=== PATIENT | female | born 1975 | race Caucasian/White ===

== ENCOUNTER 2020-06-15 08:01 | Emergency (ER) | payer OTHER ==
[~2020-06-15 08:01] MED LIST: COLACE100 MG PO; COLESTIPOL HCL1 GM PO; FAMOTIDINE20 MG PO; IBU800 MG PO; IBUPROFEN600 MG PO; NORCO 5-325 TA1 EACH PO; PREDNISOLONE ACE5 ML OP; ZYRTEC10 M3 PO
[2020-06-15] MEDS ORDERED: PREDNISONE50 MG PO (08:39)
[2020-08-06] MEDS ORDERED: FAMOTIDINE20 MG PO (07:40)
[2020-08-06] MEDS ORDERED: NAPROXEN500 MG PO (07:41)
[2020-08-06] MEDS ORDERED: COLESTIPOL HCL1 GM PO (07:41)
[2020-08-06] MEDS ORDERED: XYZAL5 MG PO (07:42)
[2020-08-06] MEDS ORDERED: PROTONIX40 MG PO (08:50)
== END 2020-06-15 08:50 | disposition home or self-care (01) ==
LOC: ER1 08:01
DX: L25.9 Unspecified contact dermatitis, unspecified cause (principal); Z90.49 Acquired absence of other specified parts of digestive tract
CPT/HCPCS: 96372; 99282; J1100

== ENCOUNTER → 2020-08-06 | Day surgery (SDC) | payer OTHER ==
[~2020-08-06] MED LIST changes: +NAPROXEN500 MG PO; +PREDNISONE50 MG PO; +PROTONIX40 MG PO; +XYZAL5 MG PO
== END | disposition home or self-care (01) ==
LOC: OR 06:52
DX: K20.0 Eosinophilic esophagitis (principal); K31.7 Polyp of stomach and duodenum; K58.0 Irritable bowel syndrome with diarrhea; E66.3 Overweight; Z68.27 Body mass index [BMI] 27.0-27.9, adult; Z87.440 Personal history of urinary (tract) infections; Z79.899 Other long term (current) drug therapy
CPT/HCPCS: J2001; J2704; J7040